=== PATIENT | male | born 1960 | race Caucasian/White ===

== ENCOUNTER 2021-01-06 07:49 | Outpatient (CLI) | payer BC | END 2021-01-06 07:50 | disposition home or self-care (01) | LOC: BICULT 07:49 | PROVIDERS: ATTEND Nurse Practitioner Family | DX: R17 Unspecified jaundice (principal); R93.421 Abnormal radiologic findings on diagnostic imaging of right kidney | CPT/HCPCS: 76705 ==

== ENCOUNTER 2021-01-23 07:25 | Outpatient (CLI) | payer BC | END 2021-01-23 07:26 | disposition home or self-care (01) | LOC: BICCT 07:25 | PROVIDERS: ATTEND Nurse Practitioner Family | DX: N28.89 Other specified disorders of kidney and ureter (principal); N52.01 Erectile dysfunction due to arterial insufficiency; I25.10 Atherosclerotic heart disease of native coronary artery without angina pectoris; E78.5 Hyperlipidemia, unspecified; E11.9 Type 2 diabetes mellitus without complications; I10 Essential (primary) hypertension; E66.9 Obesity, unspecified | CPT/HCPCS: 74170; 82565 ==

== ENCOUNTER 2023-05-13 13:24 | Outpatient (CLI) | payer BC | END 2023-05-13 13:25 | disposition home or self-care (01) | LOC: BICRAD 13:24 | PROVIDERS: ATTEND Nurse Practitioner Family | DX: M25.531 Pain in right wrist (principal) ==